=== PATIENT | female | born 1990 | race Hispanic/Latino ===

== ENCOUNTER 2022-12-09 01:13 | Emergency (ER) | payer OTHER ==
[~2022-12-09] VITALS: Ht 152.4 cm; Wt 68.5 kg
[2022-12-09 01:15] VITALS: BP 155/107
[2022-12-09] MEDS ORDERED: CARB200T6 PO (03:34)
== END 2022-12-09 03:40 | disposition home or self-care (01) ==
LOC: EDH 01:13
DX: G50.0 Trigeminal neuralgia (principal); R51.9 Headache, unspecified